=== PATIENT | male | born 1950 | race Caucasian/White ===

== ENCOUNTER 2018-06-29 19:34 | Emergency (ER) | payer BC, OTHER ==
[~2018-06-29] VITALS: Ht 180.3 cm; Wt 91.2 kg
[2018-06-29 19:54] LABS: URINE BLOOD 3+ (Negative); URINE CLARITY CLOUDY; URINE COLOR RED; URINE GLUCOSE-RANDOM* NEGATIVE (Negative); URINE KETONES TRACE (Negative); URINE PROTEIN (DIPSTICK) 2+ (Negative); URINE SPECIFIC GRAVITY >= 1.030 (1.005-1.035)
[2018-06-29 19:55] LABS: ICTOTEST (BILI CONFIRMATORY) Negative (Negative); URINE BILIRUBIN NEGATIVE (Negative); URINE LEUKOCYTES-REFLEX TRACE (Negative); URINE NITRITE-REFLEX POSITIVE (Negative)
[2018-06-29 20:06] LABS: URINE RBC >20 Many /HPF (0-2); YEAST-REFLEX Present (None Seen)
[2018-06-29 20:07] LABS: BACTERIA-REFLEX 1-9 Few /HPF (None Seen); CASTS None Seen /LPF (None Seen); CRYSTALS None Seen /LPF (None Seen); SQUAMOUS None Seen /LPF (0-3); URINE WBC-REFLEX 0-5 Rare /HPF (0-5)
[2018-06-29 20:18] LABS: ABSOLUTE NEUTROPHILS 4.6 thou/uL (1.4-8.2); EOSINOPHILS 3.4 % (0.0-3.0); HEMATOCRIT 43.9 % (42.0-52.0); HEMOGLOBIN 15.2 gm/dL (14.0-18.0); LYMPHOCYTES 23.6 % (24.0-44.0); MCH 30.1 pg (26.0-34.0); MCHC 34.6 g/dL (28.0-37.0); MONOCYTES 7.4 % (1.0-8.0); PLATELET COUNT 169 thou/uL (150-400); POLYS 64.6 % (36.0-66.0); RBC 5.05 mil/uL (4.50-6.00); RDW 14.1 % (10.5-14.5); WBC 7.1 thou/uL (4.0-11.0)
[2018-06-29] MEDS ORDERED: METFORMIN HCL500 MG PO (20:32)
[2018-06-29] MEDS ORDERED: XARELTO10 MG PO (20:33)
[2018-06-29] MEDS ORDERED: FENOFIBRATE48 MG PO (20:34)
[2018-06-29] MEDS ORDERED: FLOMAX0.4 MG PO (20:35)
[2018-06-29] MEDS ORDERED: FLECAINIDE ACET50 M1 PO (20:35)
[2018-06-29] MEDS ORDERED: DIGOXIN250 MCG PO (20:36)
[2018-06-29] MEDS ORDERED: WELLBUTRIN 100100 MG PO (20:37)
[2018-06-29 20:38] LABS: CALCIUM 9.6 mg/dL (8.5-10.1); POTASSIUM 3.8 mmol/L (3.5-5.1)
[2018-06-29] MEDS ORDERED: VICTOZA0.6 MG/0.1 SUBQ (20:38)
[2018-06-29] MEDS ORDERED: ANDROGEL2.5 G1 TOP (20:39)
[2018-06-29 21:41] VITALS: BP 128/67
== END 2018-06-29 21:44 | disposition home or self-care (01) ==
LOC: ER 19:34
PROVIDERS: Physician Assistant
DX: R31.9 Hematuria, unspecified (principal); E11.9 Type 2 diabetes mellitus without complications; I48.91 Unspecified atrial fibrillation

== ENCOUNTER → 2020-12-17 | Outpatient (CLI) | payer OTHER, BC ==
[~2020-12-17] MED LIST: ANDROGEL2.5 G1 TOP; DIGOXIN250 MCG PO; FENOFIBRATE48 MG PO; FLECAINIDE ACET50 M1 PO; FLOMAX0.4 MG PO; METFORMIN HCL500 MG PO; VICTOZA0.6 MG/0.1 SUBQ; WELLBUTRIN 100100 MG PO; XARELTO10 MG PO
== END ==
LOC: LAB 12:57
PROVIDERS: Specialist; ATTEND Student in an Organized Health Care Education/Training Program
DX: Z01.812 Encounter for preprocedural laboratory examination (principal); Z20.822 Contact with and (suspected) exposure to COVID-19

== ENCOUNTER → 2020-12-19 | Outpatient (CLI) | payer OTHER, BC ==
[~2020-12-19] VITALS: Ht 180.3 cm; Wt 83.9 kg
--- NOTE | 2020-12-22 10:18 | P ---
[facility] [place] [address] PROCEDURE REPORT Name: ANGELINA PATTON Room #: REG [facility].#: [id number] Admission: 12/19/20 Attend Phys: Fili Correa Discharge: Date of : 46 Report #: [id number] THIS REPORT FOR: cc: Jos Casas MD, Neal A. MD McElhinney, Christian C. MD ~ DOC #: [id number] cc: MD Fili Krishna MD DATE OF SERVICE: 12/19/2020 PROCEDURE PERFORMED: Upper endoscopy with biopsies and esophageal dilation. HISTORY OF PRESENT ILLNESS: The patient is a 70-year-old male with a history of intermittent dysphagia. He is not currently taking any antacids. He denies any significant heartburn symptoms. No nausea or vomiting. He has a history of colon polyps. He is scheduled for EGD and colonoscopy today. DESCRIPTION OF PROCEDURE: The risks and benefits of the procedure were explained to the patient, those risks including but not limited to bleeding, perforation and the risk of sedation. He understood these risks and gave informed consent. Sedation was given using propofol per anesthesia. Next, using a standard Olympus upper endoscope, the scope was placed in the patient's mouth and advanced under direct vision through the esophagus, stomach and into the second portion of the duodenum. The larynx was normal in appearance. The upper and mid esophagus was normal. In the distal esophagus, grade B erosive esophagitis was noted, a possible short segment of Watts's was also seen. Biopsies were obtained. Upon entering the stomach, a small hiatal hernia was noted. Overall, the gastric mucosa was normal. The pylorus was normal and patent. The duodenal bulb, first and second portion were all normal. The scope was then brought back up into the patient's stomach and a Savary guidewire was inserted through the scope, leaving the guidewire in place as the scope was then withdrawn. Next, a 48-Frisian Savary dilation of the esophagus was performed without difficulty. The wire and dilator were removed. The scope was reintroduced into the patient's stomach. There was no evidence of mucosal tear after dilation. The scope was then withdrawn and the procedure terminated. The patient tolerated the procedure well. IMPRESSION: 1. Grade B erosive esophagitis. 2. 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 3. Small hiatal hernia. 4. Otherwise, normal upper endoscopy. RECOMMENDATIONS: [facility] [address] [place] [address] PROCEDURE REPORT Name: ANGELINA PATTON Room #: REG [facility].#: [id number] Admission: 12/19/20 Attend Phys: Fili Correa Discharge: Date of : 46 Report #: [id number] 1. Await biopsy results. 2. Recommend daily PPI therapy. 3. Observe the patient post-dilation. Thank you for allowing me to participate in his care. Fili Marcos MD [facility] <ELECTRONICALLY SIGNED> By: Fili Marcos MD 12/22/20 1018 [id number] [id number] Fili Marcos MD /nt
--- NOTE | 2020-12-22 10:18 | P ---
[facility] [place] [address] PROCEDURE REPORT Name: ANGELINA PATTON Room #: REG [facility] Jc.#: [id number] Admission: 12/19/20 Attend Phys: Fili Corera Discharge: Date of : 46 Report #: [id number] THIS REPORT FOR: cc: Jos Casas MD, Neal A. MD McElhinney, Christian C. MD ~ DOC #: [id number] cc: MD Fili Krishna MD DATE OF SERVICE: 12/19/2020 PROCEDURE PERFORMED: Colonoscopy with polypectomies. HISTORY OF PRESENT ILLNESS: The patient is a 70-year-old male with previous history of colon adenomatous polyps on colonoscopy in 09/2009. He is here for followup. He denies any symptoms. No family history of colon cancer. He has been on Xarelto for AFib, but this has been held since last Tuesday. DESCRIPTION OF PROCEDURE: The risks and benefits of the procedure were explained to the patient, those risks including but not limited to bleeding, perforation and the risk of sedation. He understood these risks and gave informed consent. Sedation was given using propofol per anesthesia. Next, a digital rectal exam was initially performed, which was normal. Next, using a standard Olympus colonoscope, the scope was placed in the patient's anus and advanced under direct vision to the cecum. The overall prep was good. The cecum and ileocecal valve were normal in appearance. In the ascending colon, 2 polyps were noted. The largest was 6 mm and removed by snare cautery. The smaller was 4 mm and removed by cold forceps. In the transverse colon, another 6 mm sessile polyp was noted, also removed by snare cautery. The descending colon was normal. Multiple diverticulae were noted in the sigmoid colon. No evidence of inflammation, otherwise normal. The rectal mucosa was normal. On retroflexion, no abnormalities were noted. The scope was then withdrawn and the procedure terminated. The patient tolerated the procedure well. IMPRESSION: 1. Three small colonic polyps. 2. Sigmoid diverticulosis. 3. Otherwise, normal colonoscopy. RECOMMENDATIONS: 1. Await biopsy results. 2. Repeat colonoscopy in 5 years. Thank you for allowing me to participate in his care. [address] [address] PROCEDURE REPORT Name: ABDIANGELINA ITZEL Room #: REG [facility] Wong#: [id number] Admission: 12/19/20 Attend Phys: Fili Correa Discharge: Date of : 46 Report #: [id number] Fili Marcos MD [facility] <ELECTRONICALLY SIGNED> By: Fili Marcos MD 12/22/20 1018 0813 1 Fili Marcos MD /ana
--- NOTE | 2020-12-23 19:06 | PATH ---
[facility] [address] [address] PATHOLOGY RPT PROCEDURE Name: ANGELINA PETE Room #: REG [facility] M..#: [id number] Admission: 12/19/20 Date of : 46 Discharge: Report #: [id number] Path Case #: [id number] [facility] Accession Number: [id number] . 01 Material submitted: . PART A: esophagus - DISTAL ESOPHAGUS. Modifiers: distal PART B: colon - ASCENDING COLON POLYP BIOPSY. Modifiers: ascending PART C: colon - TRANSVERSE COLON POLYP BIOPSY X2. Modifiers: transverse, X2 . 01 Clinical history: . DTS/EGD AND COLONOSCOPY/SCREENING REFLUX COLON POLYPS, DIVERTICULOSIS, ESOPHAGITIS, HIATAL HERNIA . 02 Diagnosis: A. Gastroesophageal mucosa, distal esophagus, rule out Watts's, endoscopic biopsy: - Gastric cardia-type mucosa with moderate to marked acute and chronic inflammation. - Negative for intestinal metaplasia or dysplasia. - Squamous mucosa with mild esophagitis. . B. Polyp, ascending colon polyp, endoscopic biopsy: - Tubular adenoma. - Negative for high-grade dysplasia. . C. Polyp, transverse colon polyp, endoscopic biopsy: - Tubular adenoma. - Negative for high-grade dysplasia. (IUV:pit; 12/23/2020) QTP 12/23/2020 1734 Local . 02 Electronically signed: . Zee Andrews MD, Pathologist NPI- [id number] . 01 Gross description: . A. Received in formalin labeled "Angelina Pete, distal esophagus rule out Watts's" are 2 fragments of rodriguez-brown soft tissue measuring in aggregate 0.5 x 0.5 x 0.1 cm. The specimen is submitted entirely in A1. . B. Received in formalin labeled "Angelina Pete, ascending colon polyp BX" is a fragment of rodriguez-brown soft tissue measuring 0.3 x 0.3 x 0.2 cm. The specimen is submitted entirely in B1. . C. Received in formalin labeled "Angelina Pete, transverse colon polyp BX x2" are multiple fragments of rodriguez-brown soft tissue measuring in aggregate 1.2 x 0.6 x 0.2 cm. The specimen is submitted entirely in C1. ([facility]; [address] [address] PATHOLOGY RPT PROCEDURE Name: ANGELINA PETE Room #: REG [facility] Michelle.Betzaida.#: [id number] Admission: 12/19/20 Date of : 46 Discharge: Report #: [id number] Path Case #: [id number] 12/21/2020) SY/SYC 12/21/2020 1252 Local . 02 Pathologist provided ICD-10: K20.80, D12.2, D12.3 . 02 CPT . 907417, 217541, [id number] Specimen Comment: A courtesy copy of this report has been sent to [phone], [phone] Specimen Comment: [id number] Specimen Comment: Report sent to / DR FREDERICK Performed at: [address] [facility], [place] [id number] MD Tommy Mcghee MD Phone: [phone] Performed at: [address] [id number] MD Zee Andrews MD Phone: [phone]
== END | disposition home or self-care (01) ==
LOC: GI 07:06
PROVIDERS: ATTEND Specialist
DX: Z12.11 Encounter for screening for malignant neoplasm of colon (principal); Z86.010 Personal history of colon polyps; D12.2 Benign neoplasm of ascending colon; D12.3 Benign neoplasm of transverse colon; K57.30 Diverticulosis of large intestine without perforation or abscess without bleeding; K20.80 Other esophagitis without bleeding; R13.10 Dysphagia, unspecified; I10 Essential (primary) hypertension; E11.9 Type 2 diabetes mellitus without complications; I48.91 Unspecified atrial fibrillation; F32.9 Major depressive disorder, single episode, unspecified; Z98.890 Other specified postprocedural states; Z79.899 Other long term (current) drug therapy; Z79.4 Long term (current) use of insulin; Z79.01 Long term (current) use of anticoagulants
CPT/HCPCS: 62110; 62900